=== PATIENT | female | born 1945 | race Two or more races ===

== ENCOUNTER 2020-02-29 10:02 | Outpatient (CLI) | payer OTHER | END 2020-02-29 10:11 | disposition home or self-care (01) | LOC: NUCLEAR 10:02 | PROVIDERS: ATTEND Internal Medicine Geriatric Medicine | DX: I11.9 Hypertensive heart disease without heart failure (principal) ==

== ENCOUNTER 2021-03-11 07:13 | Outpatient (CLI) | payer OTHER | END 2021-03-11 07:19 | disposition home or self-care (01) | LOC: TOM 07:13 | PROVIDERS: ATTEND Surgery | DX: K40.90 Unilateral inguinal hernia, without obstruction or gangrene, not specified as recurrent (principal); K43.2 Incisional hernia without obstruction or gangrene ==

== ENCOUNTER 2021-04-03 05:42 | Day surgery (SDC) | payer OTHER ==
[~2021-04-03 05:42] MED LIST: ATORVASTATIN CA10 MG PO
[2021-04-03] MEDS ORDERED: NEURONTIN600 M1 PO (10:21)
[2021-04-03] MEDS ORDERED: PERCOCET 5-3251 EACH PO (10:21)
[2021-04-03] MEDS ORDERED: POLY119PG PO (10:21)
== END 2021-04-03 12:55 | disposition home or self-care (01) ==
LOC: CIR.AMB 05:42
PROVIDERS: ATTEND Surgery
DX: K40.20 Bilateral inguinal hernia, without obstruction or gangrene, not specified as recurrent (principal); Z20.822 Contact with and (suspected) exposure to COVID-19

== ENCOUNTER 2022-12-25 13:47 | Outpatient (CLI) | payer OTHER ==
[~2022-12-25 13:47] MED LIST changes: +NEURONTIN600 M1 PO; +PERCOCET 5-3251 EACH PO; +POLY119PG PO
== END 2022-12-25 13:55 | disposition home or self-care (01) ==
LOC: TOM 13:47
PROVIDERS: ATTEND Internal Medicine Geriatric Medicine
DX: S09.90XA Unspecified injury of head, initial encounter (principal); S02.91XA Unspecified fracture of skull, initial encounter for closed fracture

== ENCOUNTER 2023-03-04 08:10 | Emergency (ER) | payer OTHER ==
[~2023-03-04] VITALS: Ht 149.9 cm; Wt 49.0 kg
[2023-03-04] MEDS ORDERED: ATORVASTATIN CA20 MG PO (08:26)
== END 2023-03-04 09:38 | disposition home or self-care (01) ==
LOC: ER 08:10
DX: J03.90 Acute tonsillitis, unspecified (principal); Z88.0 Allergy status to penicillin; Z91.041 Radiographic dye allergy status

== ENCOUNTER 2023-11-24 08:49 | Emergency (ER) | payer OTHER ==
[~2023-11-24] VITALS: Ht 144.8 cm; Wt 49.0 kg
[~2023-11-24 08:49] MED LIST changes: +ATORVASTATIN CA20 MG PO
[2023-11-24] MEDS ORDERED: DEXAMETHASONE SODIUM PHOSPHATE 4 MG/ML VIAL IM STA (09:42)
[2023-11-24] MEDS ORDERED: DEXAMETHASONE SODIUM PHOSPHATE 4 MG/ML VIAL ONE (09:50)
== END 2023-11-24 10:25 | disposition home or self-care (01) ==
LOC: ER 08:50
DX: R21 Rash and other nonspecific skin eruption (principal); T78.40XA Allergy, unspecified, initial encounter; Z88.0 Allergy status to penicillin; Z91.041 Radiographic dye allergy status
CPT/HCPCS: 96372; 99282; J1100

== ENCOUNTER 2024-01-25 07:42 | Outpatient (CLI) | payer OTHER | END 2024-01-25 07:43 | disposition home or self-care (01) | LOC: NUCLEAR 07:42 | PROVIDERS: ATTEND Internal Medicine Geriatric Medicine | DX: I73.9 Peripheral vascular disease, unspecified (principal); I87.2 Venous insufficiency (chronic) (peripheral) ==

== ENCOUNTER 2024-01-26 07:11 | Outpatient (CLI) | payer OTHER | END 2024-01-26 07:20 | disposition home or self-care (01) | LOC: SONOGRAMA 07:11 | PROVIDERS: ATTEND Internal Medicine Geriatric Medicine | DX: K75.9 Inflammatory liver disease, unspecified (principal); K70.30 Alcoholic cirrhosis of liver without ascites ==